=== PATIENT | female | born 1955 | race Asian ===

== ENCOUNTER 2020-04-28 20:20 | Emergency (ER) | payer OTHER, MEDICAID ==
[~2020-04-28] VITALS: Ht 157.5 cm; Wt 67.1 kg
[2020-04-28 20:25] VITALS: BP_SYST 167
--- NOTE | 2020-04-28 20:25 | NUR ---
Patient to ER bed 03 to gown for evaluation. Side rails up.
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
--- NOTE | 2020-04-28 20:46 | NUR ---
Dr. Carmichael at bedside for evaluation.
--- NOTE | 2020-04-28 20:59 | NUR ---
PATIENT TAKEN TO X-RAY VIA WHEELCHAIR BY RADIOLOGY STAFF.
--- NOTE | 2020-04-28 21:10 | NUR ---
Patient back from x-ray via wheelchair, brought by radiology staff. calmly resting and connected back to monitor .
--- NOTE | 2020-04-28 22:48 | NUR ---
Pt resting in bed at this time, VSS.
[2020-04-28 23:12] VITALS: BP_SYST 142
--- NOTE | 2020-04-28 23:13 | NUR ---
Patient given written and verbal discharge instructions and verbalizes understanding. ER MD discussed with patient the results and treatment provided. Patient in stable condition. ID arm band removed. No Rx given. Patient educated on pain management and to follow up with PMD. Pain Scale 2/10 tolerable for patient. Opportunity for questions provided and answered. Medication side effect fact sheet provided.
== END 2020-04-28 23:12 | disposition home or self-care (01) ==
LOC: SED 20:20
DX: S16.1XXA Strain of muscle, fascia and tendon at neck level, initial encounter (principal); S29.012A Strain of muscle and tendon of back wall of thorax, initial encounter; S39.012A Strain of muscle, fascia and tendon of lower back, initial encounter; V49.59XA Passenger injured in collision with other motor vehicles in traffic accident, initial encounter; Y93.89 Activity, other specified; Y92.89 Other specified places as the place of occurrence of the external cause; Y99.8 Other external cause status
CPT/HCPCS: 72072-TC; 72100-TC; 72125-TC; 73564; 76376; 99284